=== PATIENT | male | born 1985 | race Caucasian/White ===

== ENCOUNTER 2020-05-10 00:05 | Emergency (ER) | payer OTHER ==
[~2020-05-10] VITALS: Ht 195.6 cm; Wt 108.9 kg
[2020-05-10] MEDS ORDERED: NORCO 5-325 TA1 EACH PO (00:43)
== END 2020-05-10 01:00 | disposition home or self-care (01) ==
LOC: ED 00:05
DX: S62.325A Displaced fracture of shaft of fourth metacarpal bone, left hand, initial encounter for closed fracture (principal); W22.8XXA Striking against or struck by other objects, initial encounter
CPT/HCPCS: 29125; 73130; 99283-25

== ENCOUNTER 2020-05-16 06:55 | Day surgery (SDC) | payer OTHER ==
[~2020-05-16] VITALS: Ht 195.6 cm; Wt 111.2 kg
[~2020-05-16 06:55] MED LIST: NORCO 5-325 TA1 EACH PO
--- NOTE | 2020-05-16 07:00 | NUR ---
PT ARRIVED TO THE UNIT WALKING INDEPENDENTLY AND PLACED IN RM 10. PT INFORMED THAT DUE TO COVID STATUS PROCEDURE WOULD BE LATER IN THE DAY. PT CHOOSES TO STAY RESTING IN RM 10 WITH AT THE BEDSIDE. BED LOCKED AND LOWERED, CALL LIGHT WITHIN REACH. NO FURTHER REQUESTS AT THIS TIME.
--- NOTE | 2020-05-16 12:30 | NUR ---
PRE-OP CHECK IN COMPLETE. PT RESTING IN LOCKED AND LOWERED BED, CALL LIGHT WITHIN REACH. AT THE BEDSIDE. NO FURTHER REQUESTS AT THIS TIME.
[2020-05-16] MEDS ORDERED: HYDROCODON-ACE1 EA11 PO (14:41)
--- NOTE | 2020-05-16 15:08 | NUR ---
05/16/20 1508 Shanel Bermudez 1449 PT ARRIVED IN PACU SLEEPY WITH L ARM ELEVATED ON PILLOWS. 1450 ANESTHESIA BROUGHT INTO PACU TO SEE SPOUSE, THEN LEFT. 1455 C/O L HAND PAIN 10/08. DECLINED PAIN MED WHEN OFFERED.
--- NOTE | 2020-05-16 15:28 | NUR ---
PT IN RM 10. PACU REPORT RECIEVED FROM CHARITO Vanegas RN. PT PROVIDED WITH JELLO AND WATER. PT RESTING IN LOCKED AND LOWERED BED, SIDE RAILS UP, CALL LIGHT WITHIN REACH, AT THE BEDSIDE. NO FURTHER REQUESTS AT THIS TIME.
--- NOTE | 2020-05-16 16:47 | NUR ---
PT UP TO USE THE RESTROOM WITH STANDBY ASSIST. PT AMBULATES AND VOIDS WITH NO COMPLICATIONS. PT BACK IN LOCKED AND LOWERED BED, SIDE RAILS UP, CALL LIGHT WITHIN REACH. DISCHARGE INSTRUCTIONS DISCUSSED WITH PT AND . QUESTIONS AND CONCERNS ADDRESSED. PT TO HELP GET DRESSED. NO FURTHER REQUESTS AT THIS TIME.
--- NOTE | 2020-05-16 17:10 | NUR ---
PT LEFT THE UNIT VIA WHEELCHAIR. PT TRANSFERRED FROM WHEELCHAIR TO VEHICLE INDEPENDENTLY WITH NO COMPLICATAIONS. TRANSPORTATION PROVIDED BY , [facility].
--- NOTE | 2020-05-17 08:06 | OR ---
[facility] [address] [place] [address] Signed DATE OF OPERATION: 05/16/2020 SURGEON: Ugo Carballo MD PREOPERATIVE DIAGNOSIS: Left 4th metacarpal fracture displaced. POSTOPERATIVE DIAGNOSIS: Left 4th metacarpal fracture displaced. PROCEDURE PERFORMED: Open reduction and internal fixation of left 4th metacarpal. TUTORING CLINICIAN: RISHABH Kiser. ANESTHESIA: [place] block. TOURNIQUET TIME: 54 minutes. IMPLANTS: Synthes 1.5 mm 9-hole plate with 10 screws. BRIEF HISTORY: Rex is a 34-year-old gentleman, who suffered a fracture of the of the 4th metacarpal long and spiral. This was displaced and foreshortened. Risks and benefits of operative treatment were discussed with him and he elected to proceed. DESCRIPTION OF PROCEDURE: Once consent was obtained, he was taken to the operating room. After adequate anesthesia, he was placed on operating table. All downside pressure points well padded. Left arm was prepped and draped in a standard sterile fashion and the 4th metacarpal was approached through a dorsal incision, carried through skin and subcutaneous tissue. Bleeders were cauterized with bipolar as we went. The extensor tendon was identified, retracted, and protected. The fracture was then cleaned of debris and was reduced and initially held with a pin; however, we pulled the pin because it was in the way of the plate. Then, using one of the plate clamps, we were able to clamp the fracture and reduce it assuring the rotation was good and placed an interfragmentary screw Electronically Signed By: UGO CARBALLO MD 05/17/20 0806 PATIENT NAME: REX MIX OPERATIVE REPORT DATE OF : 81 REPORT #: [id number] PHYSICIAN: UGO CARBALLO MD PCP: NO PRIMARY CARE PHYSICIAN REPORT IS CONFIDENTIAL AND NOT TO BE RELEASED WITHOUT AUTHORIZATION [facility] [address] [place], [place] [address] Signed transversely between the 2 fragments. We then placed a center screw in the plate and adjusted to length gillis and alignment and drilled and placed appropriate length screws for the rest of the plate. The plate was well aligned. The screw lengths were good on final radiographs. The fracture was well reduced. The wound was copiously irrigated with antibiotic solution. The periosteum was closed back over the plate using 2-0 Monocryl, subcutaneous tissue with 2-0 Monocryl, and the skin with 3-0 nylon and Steri- Strips. Wound was dressed with Xeroform, sterile gauze, and an ulnar gutter splint. He tolerated the procedure well. All sponge, needle, and instrument counts were correct. Ugo Carballo MD BA/ANNABELLEL /[id number] Copies: ~ Electronically Signed By: UGO CARBALLO MD 05/17/20 0806 PATIENT NAME: REX MIX OPERATIVE REPORT DATE OF : 81 REPORT #: [id number] PHYSICIAN: UGO CARBALLO MD PCP: NO PRIMARY CARE PHYSICIAN REPORT IS CONFIDENTIAL AND NOT TO BE RELEASED WITHOUT AUTHORIZATION
== END 2020-05-16 17:10 | disposition home or self-care (01) ==
LOC: OPS 06:55 → DS 06:55 → OPS 07:03 → DS 14:30 → OPS 17:10
PROVIDERS: ATTEND Specialist
PROC: 0PSQ04Z Reposition Left Metacarpal with Internal Fixation Device, Open Approach (ICD-10-PCS; principal; 2020-05-16 08:30)
DX: S62.325A Displaced fracture of shaft of fourth metacarpal bone, left hand, initial encounter for closed fracture (principal); U07.1 COVID-19; W22.8XXA Striking against or struck by other objects, initial encounter; Y92.149 Unspecified place in prison as the place of occurrence of the external cause
CPT/HCPCS: 01830; 73120; A9270; C1713; J0690; J1100; J1885; J2250; J2405; J2704; J2765; J3010; J7121